=== PATIENT | male | born 1990 | race Caucasian/White ===

== ENCOUNTER 2020-03-21 08:17 | Inpatient (IN) | payer SELFPAY ==
[~2020-03-21] VITALS: Ht 162.6 cm; Wt 77.1 kg
[2020-03-21 08:25] VITALS: Ht 162.6 cm; Wt 77.1 kg
[2020-03-21 09:18] LABS: BASOPHIL % 0.1 % (0-2); PLATELET COUNT 215 x10^3mcL (130-400); RED CELL DISTRIBUTION WIDTH 13.2 % (11.5-14.5)
[2020-03-21 09:50] LABS: ALBUMIN 4.1 g/dL (3.4-5.0); ALKALINE PHOSPHATASE 86 U/L (46-116); ALT/SGPT 50 U/L (16-63); AST/SGOT 24 U/L (15-37); BILIRUBIN DIRECT 0.13 mg/dL (0.0-0.2); BILIRUBIN TOTAL 0.6 mg/dL (0.20-1.00); CALCIUM 8.8 mg/dL (8.5-10.1); CARBON DIOXIDE 27.8 mmol/L (21-32); CHLORIDE SERUM 102 mmol/L (98-107); CREATININE SERUM 0.8 mg/dL (0.7-1.3); GFR1 > 60 mL/min; GLUCOSE SERUM 115 mg/dL (74-106); LIPASE 80 IU/L (73-393); POTASSIUM SERUM 4.4 mmol/L (3.5-5.1); SODIUM SERUM 136 mmol/L (136-145); TOTAL PROTEIN, SERUM 7.7 g/dL (6.4-8.2)
[2020-03-21 11:56] LABS: MAGNESIUM 1.9 mg/dL (1.8-2.4); PHOSPHOROUS 3.6 mg/dL (2.5-4.9)
[2020-03-21 16:29] VITALS: BP 97/53
[2020-03-21 19:20] VITALS: BP 84/30
[2020-03-21 20:14] VITALS: BP 102/51
[2020-03-21 21:22] VITALS: BP 104/49
[2020-03-21 22:27] VITALS: BP 128/67
[2020-03-22 05:20] VITALS: BP 110/60
[2020-03-22 06:57] LABS: BASOPHIL % 0.2 % (0-2); PLATELET COUNT 198 x10^3mcL (130-400); RED CELL DISTRIBUTION WIDTH 12.9 % (11.5-14.5)
[2020-03-22 07:05] LABS: CALCIUM 7.9 mg/dL (8.5-10.1); CARBON DIOXIDE 26.6 mmol/L (21-32); CHLORIDE SERUM 102 mmol/L (98-107); CREATININE SERUM 0.8 mg/dL (0.7-1.3); GFR1 > 60 mL/min; GLUCOSE SERUM 123 mg/dL (74-106); POTASSIUM SERUM 3.8 mmol/L (3.5-5.1); SODIUM SERUM 138 mmol/L (136-145)
[2020-03-22 08:11] VITALS: BP 1116/62; BP 116/62
[2020-03-22 12:29] VITALS: BP 126/78
[2020-03-22] MEDS ORDERED: IBU800 M2 PO (14:43)
[2020-03-22 15:54] VITALS: BP 126/78
== END 2020-03-22 16:30 | disposition home or self-care (01) | DRG 343 ==
LOC: ED 08:17 → MU 10:42 → DU 23:49
PROVIDERS: Student in an Organized Health Care Education/Training Program; Surgery; ADMIT Internal Medicine; ATTEND Internal Medicine
PROC: 0DTJ0ZZ Resection of Appendix, Open Approach (ICD-10-PCS; principal; 2020-03-21 10:00)
DX: K35.80 Unspecified acute appendicitis (principal); D72.829 Elevated white blood cell count, unspecified; Z79.899 Other long term (current) drug therapy
CPT/HCPCS: 94150; G0378; J0696; J2175; J2250; J2270; J2405; J3010; J3490; J7030; J7040; J7060; Q9967